=== PATIENT | female | born 1990 | race African-American/Black ===

== ENCOUNTER 2020-08-28 12:31 | Emergency (ER) | payer MEDICAID, OTHER ==
[~2020-08-28] VITALS: Ht 170.2 cm; Wt 151.5 kg
[2020-08-28 13:00] VITALS: BP 125/73
[2020-08-28 18:43] LABS: Urine Bacteria NONE SEEN /hpf (None Seen); Urine Blood Negative /uL (Negative); Urine Mucus FEW (None Seen); Urine Specific Gravity 1.023 (1.001-1.035); Urine WBC 23 /hpf (0 - 5)
== END 2020-08-28 15:06 | disposition home or self-care (01) ==
LOC: ER 12:31
DX: O26.892 Other specified pregnancy related conditions, second trimester (principal); R10.9 Unspecified abdominal pain; Z3A.15 15 weeks gestation of pregnancy
CPT/HCPCS: 36415; 76805; 81001; 84702